=== PATIENT | female | born 1965 | race American Indian/Alaskan Native ===

== ENCOUNTER 2016-02-21 13:39 | Outpatient (CLI) | payer BC ==
--- NOTE | 2016-02-21 15:39 | Ultrasound Report ---
LEFT BREAST ULTRASOUND: 02/21/16 13:39:00 CLINICAL: 5 mm nodular density in the upper left breast. COMPARISON: 02/07/16 diagnostic mammogram. FINDINGS: Ultrasound of the left breast(including all four quadrants and the retroareolar area) was performed. A cyst at 3 o'clock 5 cm from the nipple measures 4 x 3 x 4 mm. No other cyst and no solid mass. IMPRESSION: A benign 4 mm cyst at 3 o'clock. This is not appear to correlate with the 5 mm nodular density in the upper breast identified on one view of the mammogram. Therefore, recommend a six month mammographic followup. BI-RADS 3 - - Probably Benign
== END 2016-02-21 13:40 | disposition home or self-care (01) ==
LOC: SPVWC 13:39
PROVIDERS: ATTEND Family Medicine Adult Medicine
DX: N60.02 Solitary cyst of left breast (principal); R92.8 Other abnormal and inconclusive findings on diagnostic imaging of breast

== ENCOUNTER 2018-11-14 19:46 | Emergency (ER) | payer BC, OTHER ==
[2018-11-14 20:26] VITALS: BP 125/79
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
[2018-11-14] MEDS ORDERED: IBUPROFEN 600 MG TAB PO ONE (21:48)
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
== END 2018-11-14 22:15 | disposition home or self-care (01) ==
LOC: ED 19:46
DX: S39.012A Strain of muscle, fascia and tendon of lower back, initial encounter (principal); S16.1XXA Strain of muscle, fascia and tendon at neck level, initial encounter; Z90.710 Acquired absence of both cervix and uterus; V89.2XXA Person injured in unspecified motor-vehicle accident, traffic, initial encounter; Y93.89 Activity, other specified; Y92.410 Unspecified street and highway as the place of occurrence of the external cause; Y99.8 Other external cause status
CPT/HCPCS: 72040; 72100